=== PATIENT | female | born 2000 | race Two or more races ===

== ENCOUNTER 2018-10-02 11:14 | Emergency (ER) | payer SELFPAY ==
[~2018-10-02] VITALS: Ht 149.9 cm; Wt 50.0 kg
[2018-10-02] MEDS ORDERED: IBUPROFEN 400MG TABLET PO ONE (12:15)
[2018-10-02 14:28] VITALS: BP 124/74
== END 2018-10-02 14:28 | disposition home or self-care (01) ==
LOC: ER 11:14
DX: S63.591A Other specified sprain of right wrist, initial encounter (principal); S50.01XA Contusion of right elbow, initial encounter; W01.0XXA Fall on same level from slipping, tripping and stumbling without subsequent striking against object, initial encounter; Y93.51 Activity, roller skating (inline) and skateboarding; Y92.89 Other specified places as the place of occurrence of the external cause
CPT/HCPCS: 73080; 81025; 99283